=== PATIENT | female | born 1965 | race Caucasian/White ===

== ENCOUNTER 2021-06-06 05:49 | Day surgery (SDC) | payer MEDICARE, OTHER ==
[~2021-06-06] VITALS: Ht 170.2 cm; Wt 157.2 kg
--- NOTE | ~2021-06-06 | OR ---
[facility] [address] [place] [address] Draft DATE OF OPERATION: 06/06/2021 SURGEON: Mayra Sue DO PROCEDURES: Hysteroscopy, dilation and curettage. PREOPERATIVE DIAGNOSES: 1. Abnormal uterine bleeding. 2. BMI 55. 3. Uncertain menopausal status. POSTOPERATIVE DIAGNOSES: 1. Endometrial polyp. 2. Abnormal uterine bleeding. 3. Uncertain menopausal status. 4. BMI 55. ANESTHESIA: General. BLOOD LOSS: 5 mL. COMPLICATIONS: None. FINDINGS: Normal appearing endocervical canal, endometrial cavity with diffuse thickening as well as 2.5 cm anterior endometrial polyp. INDICATIONS: The patient is a 55-year-old female with uncertain menopausal status, irregular bleeding pattern. Ultrasound was performed, yielding equivocal findings, but likely endometrial thickening. Risks, benefits, and alternatives to hysteroscopy and D and C were discussed and the patient elected to proceed. PROCEDURE IN DETAIL: The patient was taken to the operating room, where she was given heparin 5000 units subcu. She was placed under general anesthesia and positioned in dorsal lithotomy PATIENT NAME: RADHA COX OPERATIVE REPORT DATE OF : 63 REPORT #: [id number] PHYSICIAN: MAYRA SUE DO PCP: CHAS BURNS PA-C REPORT IS CONFIDENTIAL AND NOT TO BE RELEASED WITHOUT AUTHORIZATION [address] [address] Draft position. She was prepped and draped in normal sterile fashion and bladder was drained. Weighted speculum was placed in the vagina. Anterior lip of the cervix was grasped with a single-tooth tenaculum in 12 o'clock position. Cervix was easily sequentially sounded with Hegar dilators up to 6 mm Hegar dilator. Then, the hysteroscope was inserted and advanced into the endometrial cavity without any difficulty or resistance. Bilateral tubal ostia were visualized as well as findings significant for endometrial polyp. Initially, endometrium appeared atrophic. After polypectomy was performed with the MyoSure, circumferential curettage of the endometrial cavity was performed demonstrating significant thickening of the endometrium. Samples were sent separately as endometrial polyp and endometrial curettings. All instrumentation was removed. Excellent hemostasis was noted. Fluid deficit from the Aquilex system of normal saline was noted to be 135 mL. All sponge and instrument counts were correct. The patient was taken to Recovery in stable and satisfactory condition. We will discuss pathology at followup appointment in one week. DO LISA Fragoso/CALLI /[id number] Copies: ~ PATIENT NAME: RADHA COX OPERATIVE REPORT DATE OF : 63 REPORT #: [id number] PHYSICIAN: MAYRA SUE DO PCP: CHAS BURNS PA-C REPORT IS CONFIDENTIAL AND NOT TO BE RELEASED WITHOUT AUTHORIZATION
[~2021-06-06 05:49] MED LIST: ACETAMINOPHEN500 MG PO; CLOBETASOL PROP15 GM TOP; HYDROCODON-ACE1 EA10 PO; IBUPROFEN600 MG PO; JANUVIA50 MG PO; LIPITOR40 MG PO; LISINOPRIL20 MG PO; METFORMIN HCL1000 M1 PO; NYSTATIN15 GM TOP
--- NOTE | 2021-06-06 08:17 | NUR ---
06/06/21 0817 Yolette Strauss 0809- PT TO PACU IN SUPINE POSITION. SLEEPING WITH ORAL AIRWAY IN PLACE. PT DOES NOT RESPOND TO VERBAL OR TACTILE STIMULI. BREATHING EASY AND UNLABORED. SPO2 >95% ON 10 L O2 VIA SIMPLE MASK. 0814- PT CONTINUES TO SLEEP WITH ORAL AIRWAY IN PLACE. REACTIVE TO VERBAL AND TACTILE STIMULI. DOES NOT OPEN EYES OR FOLLOW COMMANDS. BREATHING EASY AND UNLABORED. HOB ELEVATED AND HEAD REPOSITIONED TO OPTIMIZE VENTILATION.
--- NOTE | 2021-06-06 08:57 | NUR ---
0845: REPORT GIVEN TO THIS RN IN PACU FROM SUNIL LEAL. PT AWAKE AND ALERT, RESP EVEN AND UNLABORED. PT DENIES ANY PAIN IN SURGICAL SITE, STATES THAT THROAT HURTS AND IS TOLERATED ICED WATER WITH NO NAUSEA. PT SON, AZAEL AT BEDSIDE ON ARRIVAL. ICED WATER REFILLED TWICE SINCE IN DS RM 12, PROVIDED APPLESAUCE ALSO. DC CRITERIA EXPLAINED TO PT, CALL LIGHT WITHIN REACH.
[2021-06-06] MEDS ORDERED: IBUPROFEN800 MG PO (10:01)
--- NOTE | 2021-06-06 13:00 | NUR ---
0950: VS CHECKED. PATIENT TOLERATED SODA, WATER, AND SNACKS. DENIES PAIN. IV SITE WNL. 1005: PATIENT ASSISTED OOB AND TO GET DRESSED. PATIENT AMBULATED TO BATHROOM WITH PERSONAL CANE AND STAND BY ASSIST. GAIT STEADY. VOID WITHOUT DIFFICULTY. GAIT STEADY BACK TO ROOM. 1022: IV DC'D WNL. TIP INTACT. DRESSING APPLIED. DISCHARGE INSTRUCTIONS GIVEN TO PATIENT AND SON. PATIENT DISCHARGED TO HOME VIA WHEELCHAIR WITH SON.
--- NOTE | 2021-06-08 14:05 | PATH ---
[facility] [address] [address] [facility], [place] [address] Signed SPECIMEN(S): A ENDOMETRIAL POLYP SPECIMEN(S): B ENDOMETRIAL CURETTINGS SPECIMEN SOURCE: A. ENDOMETRIAL POLYP B. ENDOMETRIAL CURETTINGS CLINICAL HISTORY: Abnormal uterine bleeding. FINAL PATHOLOGIC DIAGNOSIS: A. Endometrium, polyp, polypectomy: - Fragments of benign endometrial polyp. - Negative for atypical hyperplasia or malignancy. B. Endometrium, curettage: - Fragments of benign endometrial polyp(s). - Fragments of disordered proliferative endometrium. - Myometrium without histopathologic abnormality. - Negative for atypical hyperplasia or malignancy. - See comment. COMMENT: Specimen B: Given the presence of several fragments of endometrial polyps, it is difficult to definitively determine between polyp and a background endometrium. Clinical correlation is required. NAL:mfr:C2NR MICROSCOPIC EXAMINATION: Histologic sections of all submitted blocks are examined by light microscopy. These findings, together with the gross examination, support the pathologic diagnosis. GROSS DESCRIPTION: Two specimens are received in two containers, labeled "AC." A. The specimen, labeled "AC, endometrial polyp," is received in formalin and consists of irregular shaped pink-major, fibromembranous tissue fragment that measure 2.8 x 1.0 x 0.2 cm. Specimen is entirely submitted in cassette (A1). B. The specimen, labeled "AC, endometrial curettings," is received in formalin and consists of irregular shaped pink-major, fibromembranous tissue fragment that aggregate measure 2.7 x 2.6 x 0.6 cm. PATIENT NAME: RADHA COX PATHOLOGY DATE OF : 63 REPORT #: [id number] PHYSICIAN: COLIN CUTLER PCP: CHAS BURNS PA-C REPORT IS CONFIDENTIAL AND NOT TO BE RELEASED WITHOUT AUTHORIZATION [facility] [address] [address] Signed Specimen is entirely submitted in cassettes (B1-B2). JS (under the direct supervision of a pathologist) The Gross Description was prepared using a voice recognition system. The report was reviewed for accuracy; however, sound-alike word errors, addition and/or deletions may occur. If there is any question about this report, please contact Client Services. PERFORMING LABORATORY: The technical component was performed by [facility] [address] ([place] Tower Loader: Aye Saba MD; CLIA# [id number]). Professional interpretation was performed by [facility], [address] [address] (CLIA# [id number]). Diagnostician: Jennyfer Betancur MD Pathologist Electronically Signed 06/08/2021 Copies: ~ PATIENT NAME: RADHA COX PATHOLOGY DATE OF : 63 REPORT #: [id number] PHYSICIAN: COLIN PATHOLOGY PCP: CHAS BURNS PA-C REPORT IS CONFIDENTIAL AND NOT TO BE RELEASED WITHOUT AUTHORIZATION
== END 2021-06-06 10:22 | disposition home or self-care (01) ==
LOC: OPS 05:49 → DS 05:49 → OPS 07:30 → DS 07:30 → OPS 10:22
PROVIDERS: ATTEND Obstetrics & Gynecology
PROC: 0UDB8ZZ Extraction of Endometrium, Via Natural or Artificial Opening Endoscopic (ICD-10-PCS; principal; 2021-06-06 07:30)
DX: N84.0 Polyp of corpus uteri (principal); N93.9 Abnormal uterine and vaginal bleeding, unspecified; E11.9 Type 2 diabetes mellitus without complications; N95.9 Unspecified menopausal and perimenopausal disorder; Z79.84 Long term (current) use of oral hypoglycemic drugs; Z98.890 Other specified postprocedural states
CPT/HCPCS: 00952; 36415; 84703; 85025; 86850; 86900; 86901; J0330; J1100; J1644; J1885; J2250; J2405; J2704; J2765; J3010; J7121